=== PATIENT | male | born 1960 | race Caucasian/White ===

== ENCOUNTER 2017-06-03 16:07 | Emergency (ER) | payer OTHER, BC ==
[2017-06-03] MEDS ORDERED: Diphtheria,Pertussis(Acell),Tetanus Vaccine 0.5 ML Syringe IM ONE (16:46)
[2017-06-03] MEDS ORDERED: Sodium Chloride 0.9% 1,000 ML IV ONE (16:46)
[2017-06-03] MEDS ORDERED: Ondansetron 4 MG/2 ML SDV IVPUSH ONE (16:46)
[2017-06-03] MEDS ORDERED: Morphine 4 MG/ML Syringe IVPUSH ONE ×2 (16:46→18:07)
--- NOTE | 2017-06-03 16:46 | EDM.PDOC ---
ED HPI GENERAL MEDICAL PROBLEM - General Chief Complaint: Upper Extremity Injury/Pain Stated Complaint: PT HURT LT ARM AT WORK Time Seen by Provider: 06/03/17 16:43 Source of Information: Reports: Patient History Limitations: Reports: No Limitations - History of Present Illness INITIAL COMMENTS - FREE TEXT/NARRATIVE: HISTORY AND PHYSICAL: History of present illness: Patient is a 57-year-old male who presents to the emergency room today with complaints of left arm pain after a equipment related injury. He states that a piece of equipment had fallen landing on his left arm reportedly 500 pounds. He denies hitting his head or any loss of consciousness. Upon arrival he does have his left arm guarded in towards his body and states he has pain from the shoulder down to his wrist. He has strong radial pulse with good capillary refill, does not appear to have vascular involvement. Soft tissue swelling noted to the mid forearm. Tetanus has been updated within the last 5 years. Review of systems: As per history of present illness and below otherwise all systems reviewed and negative. Past medical history: As per history of present illness and as reviewed below otherwise noncontributory. Surgical history: As per history of present illness and as reviewed below otherwise noncontributory. Social history: No reported history of drug or alcohol abuse. Family history: As per history of present illness and as reviewed below otherwise noncontributory. Physical exam: General: Well-developed and well-nourished 57 year old male. Alert and oriented. Nontoxic appearing in mild injury related distress. HEENT: Atraumatic, normocephalic, pupils equal and reactive bilaterally, negative for conjunctival pallor or scleral icterus, mucous membranes moist, throat clear, neck supple, nontender, trachea midline. No drooling or trismus noted. No meningeal signs Lungs: Clear to auscultation, breath sounds equal bilaterally, chest nontender. Heart: S1S2, regular rate and rhythm without overt murmur Abdomen: Soft, nondistended, nontender. Negative for masses or hepatosplenomegaly. Negative for costovertebral tenderness. Pelvis: Stable nontender. Genitourinary: Deferred. Rectal: Deferred. C-spine/Back: No pinpoint vertebral tenderness. No crepitus, step offs, or obvious deformities. Ambulatory without difficulty or deficits. Skin: Small abrasion noted mid left forearm with soft tissue swelling. Otherwise skin is intact, warm, and dry. No lesions or rashes noted. Extremities: Keeps the left arm guarded in towards in center. States he has pain from this deltoid down to wrist. No tenderness with palpation of the clavicle or scapula. Generalized tenderness to the deltoid, bicep, tricep and humerus. Mild tenderness with palpation of the left elbow, good passive ROM. Unwilling to fully extend/flexion of the elbow due to pain. Soft tissue swelling to mid-foramen with tenderness over this area. Good flexion/extension of wrist, nontender with palpation. Strong radial pulse. Capillary refill less than 3 seconds. No vascular compromise noted. Neuro: Awake, alert, oriented. Cranial nerves II through XII unremarkable. Cerebellum unremarkable. Motor and sensory unremarkable throughout. Exam nonfocal. Notes: X-ray of the left shoulder and forearm show no dislocations or fractures. Soft tissue swelling is noted to the proximal forearm. Am going to place the patient in a posterior splint with a sling. Educated patient on signs and symptoms that would prompt him to return to the emergency room which included but not limited to: increased swelling, numbness or tingling to affected hand, uncontrolled pain or any new symptoms. I do want him to follow up closely with orthopedics as the nature of this injury was significant and he has moderate amount of swelling. Want to be re-evaluated for any hidden/occult fractures that were not visible on todays xray. Patient is aware of this and understands the importance of following up next week. [place] (#30) and Zofran prescribed. Diagnostics: Xray left shoulder, left forearm Therapeutics: IV fluids, morphine, zofran 1/2 cast splint with sling Impression: Crush Injury, left arm Contusion, left arm Plan: 1. Rest, ice, elevate. Please keep the splint on and use sling as directed, until you follow-up with Orthopedics next week. 2. [place] has been prescribed for pain managment. This medication is a narcotic and can cause drowsiness, so do not take while driving or needing to be functioning outside of the house. 3. No work until cleared by orthopedics or your primary care provider. 4. Follow up with Orthopedics next week for re-evaluation. As we discussed; if you notice increased swelling, numbness or tingling to your hand, uncontrolled pain, or any new symptoms develop - please return to the Emergency Room. Definitive disposition and diagnosis as appropriate pending reevaluation and review of above. Onset: Today Duration: Minutes: Location: Reports: Upper Extremity, Left Left Arm Pain Score (Numeric/FACES): 10 - Related Data Allergies Allergy/AdvReac Type Severity Reaction Status Date / Time No Known Allergies Allergy Verified 06/03/17 16:41 Home Meds: Home Meds . [No Known Home Meds] 04/08/15 [History] Past Medical History - Past Surgical History GI Surgical History: Reports: Appendectomy, Other (See Below) Social & Family History - Tobacco Use Smoking Status *Q: Never Smoker - Recreational Drug Use Recreational Drug Use: No Review of Systems - Review of Systems Review Of Systems: ROS reveals no pertinent complaints other than HPI. ED EXAM, GENERAL - Physical Exam Exam: See Below (See dictation) Course - Vital Signs Last Recorded V/S: Last Vital Signs Temp 97.9 F 06/03/17 16:36 Pulse 71 06/03/17 16:36 Resp 22 H 06/03/17 16:36 BP 130/81 06/03/17 16:36 Pulse Ox 98 06/03/17 16:36 - Orders/Labs/Meds Orders: Active Orders 24 hr Category Date Time Status Vaccines to be Administered [RC] PER UNIT ROUTINE Care 06/03/17 16:46 Active Forearm 2V Lt [CR] Stat Exams 06/03/17 17:27 Taken Shoulder Comp Lt [CR] Stat Exams 06/03/17 16:38 Taken DME for Discharge [COMM] Stat Oth 06/03/17 18:08 Ordered Meds: Medications Discontinued Medications Generic Name Dose Route Start Last Admin Trade Name Adityaq PRN Reason Stop Dose Admin Diphtheria/Tetanus/Acell Pertussis 0.5 ml 06/03/17 16:46 06/03/17 17:10 Adacel IM 06/03/17 16:47 0.5 ml .ONCE ONE Administration Sodium Chloride 1,000 mls @ 999 mls/hr 06/03/17 16:46 06/03/17 17:07 Normal Saline IV 06/03/17 17:46 999 mls/hr STAT ONE Administration Morphine Sulfate 4 mg 06/03/17 16:46 06/03/17 17:06 Morphine IVPUSH 06/03/17 16:47 4 mg ONETIME ONE Administration Morphine Sulfate 2 mg 06/03/17 18:07 06/03/17 18:17 Morphine IVPUSH 06/03/17 18:08 2 mg ONETIME ONE Administration Ondansetron HCl 4 mg 06/03/17 16:46 06/03/17 17:07 Zofran IVPUSH 06/03/17 16:47 4 mg ONETIME ONE Administration Departure - Departure Time of Disposition: 18:31 Disposition: Home, Self-Care 01 Clinical Impression: Crush injury arm Qualifiers: Encounter type: initial encounter Laterality: left Qualified Code(s): S47.2XXA - Crushing injury of left shoulder and upper arm, initial encounter Contusion Qualifiers: Encounter type: initial encounter Contusion area: forearm Laterality: left Qualified Code(s): S50.12XA - Contusion of left forearm, initial encounter - Discharge Information Instructions: Contusion, [id number] Referrals: PCP,None [Primary Care Provider] - Forms: ED Department Discharge Additional Instructions: The following information is given to patients seen in the emergency department who are being discharged to home. This information is to outline your options for follow-up care. We provide all patients seen in our emergency department with a follow-up referral. The need for follow-up, as well as the timing and circumstances, are variable depending upon the specifics of your emergency department visit. If you don't have a primary care physician on staff, we will provide you with a referral. We always advise you to contact your personal physician following an emergency department visit to inform them of the circumstance of the visit and for follow-up with them and/or the need for any referrals to a consulting specialist. The emergency department will also refer you to a specialist when appropriate. This referral assures that you have the opportunity for follow-up care with a specialist. All of these measure are taken in an effort to provide you with optimal care, which includes your follow-up. Under all circumstances we always encourage you to contact your private physician who remains a resource for coordinating your care. When calling for follow-up care, please make the office aware that this follow-up is from your recent emergency room visit. If for any reason you are refused follow-up, please contact the [facility] Emergency Department at and asked to speak to the emergency department charge nurse. VALERIANO [facility] [address] [place] [address] [facility] - [facility] Professional Building [address], [address] [place] [address] 1. Rest, ice, and elevate the affected extremity. Please keep the splint on and use sling as directed, until you follow-up with Orthopedics next week. 2. [place] Mead has been prescribed for pain managment. This medication is a narcotic and can cause drowsiness, so do not take while driving or needing to be functioning outside of the house. 3. No work until cleared by orthopedics or your primary care provider. 4. Follow up with Orthopedics next week for re-evaluation. As we discussed; if you notice increased swelling, numbness or tingling to your hand, uncontrolled pain, or any new symptoms develop - please return to the Emergency Room. - My Orders Last 24 Hours: My Active Orders 06/03/17 16:38 Shoulder Comp Lt [CR] Stat 06/03/17 16:46 Vaccines to be Administered [RC] PER UNIT ROUTINE 06/03/17 17:27 Forearm 2V Lt [CR] Stat 06/03/17 18:08 DME for Discharge [COMM] Stat - Assessment/Plan Last 24 Hours: My Active Orders 06/03/17 16:38 Shoulder Comp Lt [CR] Stat 06/03/17 16:46 Vaccines to be Administered [RC] PER UNIT ROUTINE 06/03/17 17:27 Forearm 2V Lt [CR] Stat 06/03/17 18:08 DME for Discharge [COMM] Stat
[2017-06-03 19:32] VITALS: BP 123/78
--- NOTE | 2017-06-04 18:09 | CR ---
EXAM DATE: 06/03/17 PATIENT'S AGE: 57 Patient: ALEJO KARIMI Facility: [place], [place] Site . Site : 1960 Study: XRay Extremity Left [id number]/29/2018 5:47:16 PM Ordering Physician: Doctor Clay Final Report: Indication: Crush injury Technique: Two views left forearm Comparison: None Findings: Bones: Alignment is normal. No fractures or bone lesions. Joint spaces: Unremarkable. Soft tissues: Soft tissue swelling involving the proximal to mid forearm. No radiopaque foreign body. Impression: Soft tissue swelling of the proximal to mid forearm. No fracture, subluxation, or radiopaque foreign body. Dictated by Maday Sesay MD @ Jun 03 2017 5:55PM (Electronic Signature) Report Signed by Proxy. ZOEY
--- NOTE | 2017-06-04 18:14 | CR ---
EXAM DATE: 06/03/17 PATIENT'S AGE: 57 Patient: ALEJO KARIMI Facility: [place], [place] Site . Site : 1960 Study: XRay Shoulder Left [id number]/29/2018 6:02:49 PM Ordering Physician: Doctor Clay Final Report: HISTORY: Pain, crush injury. FINDINGS/IMPRESSION: Two views of the left shoulder demonstrates maintenance of the AC joint and glenohumeral joint. No fracture or dislocation is appreciated. No left-sided displaced rib fracture is seen. Left clavicle is intact. Dictated by Naz Michel MD @ 06/03/2017 6:05:40 PM Dictated by: Naz Michel MD @ 06/03/2017 18:05:49 (Electronic Signature) Report Signed by Proxy. [email or web address]
== END 2017-06-03 19:10 | disposition home or self-care (01) ==
LOC: MW.ED 16:07
DX: S57.82XA Crushing injury of left forearm, initial encounter (principal); S50.12XA Contusion of left forearm, initial encounter; Z23 Encounter for immunization; W23.1XXA Caught, crushed, jammed, or pinched between stationary objects, initial encounter
CPT/HCPCS: 73030; 73090; 90471; 90715; 96361; 96374; 96375; 96376; 99283; A4566; J2270; J2405; J7040

== ENCOUNTER 2018-10-05 07:52 | Day surgery (SDC) | payer OTHER, BC ==
[~2018-10-05 07:52] MED LIST: Lactated Ringers 1,000 ML IV SCH; Lidocaine 1% 20 ML MDV ONE
[2018-10-05] MEDS ORDERED: ceFAZolin 2 GM in Premix Bag 1 BAG IV SCH (08:00)
[2018-10-05] MEDS ORDERED: Acetaminophen/HYDROcodone 325-5 MG Tab PO PRN (08:00)
[2018-10-05] MEDS ORDERED: Ondansetron 4 MG/2 ML SDV ONE (08:59)
[2018-10-05] MEDS ORDERED: Lidocaine 2% 5 ML SDV ONE (08:59)
[2018-10-05] MEDS ORDERED: Propofol 200 MG/20 ML SDV ONE (09:00)
[2018-10-05] MEDS ORDERED: Midazolam 1 MG/ML 2 ML SDV ONE (09:00)
[2018-10-05] MEDS ORDERED: fentaNYL 250 MCG/5 ML SDV ONE (09:00)
[2018-10-05] MEDS ORDERED: EPINEPHrine 1:10,000 1 MG/10 ML Syringe IVPUSH PRN (09:06)
[2018-10-05] MEDS ORDERED: Albuterol 0.083% 2.5 MG/3 ML Neb Soln NEB PRN (09:06)
[2018-10-05] MEDS ORDERED: Atropine 0.1 MG/ML 10 ML Syringe IVPUSH PRN ×2 (09:06)
[2018-10-05] MEDS ORDERED: Naloxone 0.4 MG/ML Syringe IVPUSH PRN (09:06)
[2018-10-05] MEDS ORDERED: fentaNYL 100 MCG/2 ML SDV IVPUSH PRN (09:06)
[2018-10-05] MEDS ORDERED: 50% Dextrose in Water 50 ML Syringe IVPUSH PRN (09:06)
[2018-10-05] MEDS ORDERED: ePHEDrine 50 MG/ML SDV ONE (09:57)
--- NOTE | 2018-10-05 10:01 | PCM.PREANE ---
Preanesthetic Assessment - Anesthesia/Transfusion/Family Hx Anesthesia History: Prior Anesthesia Without Reaction Family History of Anesthesia Reaction: No Transfusion History: No Prior Transfusion(s) Intubation History: Unknown - Review of Systems General: No Symptoms Pulmonary: No Symptoms Cardiovascular: No Symptoms Gastrointestinal: No Symptoms Neurological: No Symptoms Other: Reports: None - Physical Assessment NPO Status Date: 10/05/18 NPO Status Time: 06:00 O2 Sat by Pulse Oximetry: 98 Respiratory Rate: 16 Vital Signs: Last Vital Signs Temp 36.7 C 10/05/18 08:00 Pulse 61 10/05/18 08:00 Resp 16 10/05/18 08:00 BP 116/76 10/05/18 08:00 Pulse Ox 98 10/05/18 08:00 Height: 5 ft 8.5 in Weight: 86.183 kg ASA Class: 1 Mental Status: Alert & Oriented x3 Airway Class: Mallampati = 1 Dentition: Reports: Normal Dentition Thyro-Mental Finger Breadths: 3 Mouth Opening Finger Breadths: 3 ROM/Head Extension: Full Lungs: Clear to Auscultation, Normal Respiratory Effort Cardiovascular: Regular Rate, Regular Rhythm - Allergies Allergies/Adverse Reactions: Allergies Allergy/AdvReac Type Severity Reaction Status Date / Time No Known Allergies Allergy Verified 09/30/18 07:55 - Blood Blood Available: No - Anesthesia Plan Pre-Op Medication Ordered: None - Acknowledgements Anesthesia Type Planned: General Anesthesia Pt an Appropriate Candidate for the Planned Anesthesia: Yes Alternatives and Risks of Anesthesia Discussed w Pt/Guardian: Yes Pt/Guardian Understands and Agrees with Anesthesia Plan: Yes PreAnesthesia Questionnaire - Past Health History Medical/Surgical History: Denies Medical/Surgical History Musculoskeletal History: Reports: Fracture Other Musculoskeletal History: hx fx hand - Past Surgical History Head Surgeries/Procedures: Reports: None GI Surgical History: Reports: Appendectomy - SUBSTANCE USE Smoking Status *Q: Never Smoker Recreational Drug Use History: No - HOME MEDS Home Medications: Home Meds . [No Known Home Meds] 04/08/15 [History] - CURRENT (IN HOUSE) MEDS Current Meds: Current Medications Hydrocodone Bitart/Acetaminophen ([place] 325-5 Mg) 1 - 2 tab PO Q4H PRN PRN Reason: Pain Albuterol (Proventil Neb Soln) 2.5 mg NEB ONETIME PRN PRN Reason: Wheezing Atropine Sulfate (Atropine 0.1 Mg/Ml) 0.5 mg IVPUSH ASDIRECTED PRN PRN Reason: Hypo-perfusion Atropine Sulfate (Atropine 0.1 Mg/Ml) 1 mg IVPUSH ASDIRECTED PRN PRN Reason: Hypo-Perfusion Dextrose/Water (Dextrose 50% In Water) 50 ml IVPUSH ASDIRECTED PRN PRN Reason: Hypoglycemia Epinephrine HCl (Epinephrine 1:10,000) 1 mg IVPUSH ASDIRECTED PRN PRN Reason: ACLS Guidelines Fentanyl (Sublimaze) 50 - 100 mcg IVPUSH Q5M PRN PRN Reason: Pain Cefazolin Sodium/Dextrose 2 gm (/ Premix) 50 mls @ 100 mls/hr IV ONCALL LUC Lactated Ringer's (Ringers, Lactated) 1,000 mls @ 100 mls/hr IV ASDIRECTED LUC Last Admin: 10/05/18 08:25 Dose: 100 mls/hr Naloxone HCl (Narcan) 0.1 mg IVPUSH ASDIRECTED PRN PRN Reason: Respiratory Depression Discontinued Medications Fentanyl (Sublimaze) Confirm Administered Dose 250 mcg .ROUTE .STK-MED ONE Stop: 10/05/18 09:01 Lidocaine (Xylocaine-Mpf 2%) Confirm Administered Dose 5 ml .ROUTE .STK-MED ONE Stop: 10/05/18 09:00 Lidocaine HCl (Xylocaine 1%) Confirm Administered Dose 20 ml .ROUTE .STK-MED ONE Stop: 10/05/18 07:39 Midazolam HCl (Versed 1 Mg/Ml) Confirm Administered Dose 2 mg .ROUTE .STK-MED ONE Stop: 10/05/18 09:01 Ondansetron HCl (Zofran) Confirm Administered Dose 4 mg .ROUTE .STK-MED ONE Stop: 10/05/18 09:00 Propofol (Diprivan 20 Ml) Confirm Administered Dose 200 mg .ROUTE .STK-MED ONE Stop: 10/05/18 09:01
--- NOTE | 2018-10-05 10:24 | PCM.OPNOTE ---
- General Post-Op/Procedure Note Date of Surgery/Procedure: 10/05/18 Operative Procedure(s): left knee scope with chondroplasty of MFC Post-Op Diagnosis: DJD left knee Anesthesia Technique: General LMA Primary Surgeon: Flory Alexis Analytical Research Chemist: Maryan Sullivan in mLs: 5 Condition: Good Free Text/Narrative:: #[id number]
[2018-10-05 12:16] VITALS: BP 107/62; PULSE 58
--- NOTE | 2018-10-05 13:07 | OR ---
SURGEON: Flory Alexis MD DATE OF PROCEDURE: 10/05/2018 PREOPERATIVE DIAGNOSIS: Left knee pain. POSTOPERATIVE DIAGNOSIS: Degenerative joint disease, left knee. PROCEDURE: Left knee arthroscopy with chondroplasty of the medial femoral condyle. PRIMARY SURGEON: Flory Alexis MD. PRESS AND BLOW MACHINE TENDER: Maryan Sullivan PA-C. ANESTHESIA: General. ESTIMATED BLOOD LOSS: 5 mL. TOURNIQUET TIME: See nursing record. COMPLICATIONS: None. DVT PROPHYLAXIS: Not indicated. IMPLANTS USED: None. BRIEF HISTORY: Stephan is a 58-year-old male who was seen with complaint of continued left knee pain. He had failed conservative treatment. Due to his lack of response to conservative treatment, I did recommend surgical intervention. The risks and goals of the procedure were discussed with the patient and were documented preoperatively. He agreed to proceed. DESCRIPTION OF PROCEDURE: The patient was properly identified and brought to the operating room. He was transferred from the OR cart and placed on the operating table in supine position. General anesthesia was administered. After adequate anesthesia was obtained, a well-padded tourniquet was applied to the left lower extremity. The left lower extremity was then prepped in standard fashion using ChloraPrep solution. It was then sterilely draped. A time-out was performed to ensure correct site and procedure. Preoperative antibiotics were given. The surgical site had been marked preoperatively. An Esmarch was used to exsanguinate the left lower extremity and tourniquet was inflated to 250 mmHg. A lateral portal arthrotomy was established. Blunt trocar and cannula were introduced into the suprapatellar pouch. Camera, inflow, and outflow were assembled. No significant synovitis was noted. The patellofemoral joint was then visualized. He did have evidence of grade 2 to grade 3 chondromalacia along the lateral facet of the patella. Trochlear groove showed degenerative changes consisting of grade 2. The patella appeared to track centrally. I then extended down the lateral and medial gutter. No loose bodies were identified. I then entered the medial compartment. A medial portal arthrotomy was established. A blunt probe was inserted. The meniscus was extensively probed. No tearing was noted. Degenerative changes were noted along the entire weightbearing surface of the medial femoral condyle. There was a large flap of cartilage present as well. Chondroplasty was performed. The degenerative changes were consistent with grade 3 chondromalacia. Grade 2 to grade 3 chondromalacia was also noted along the medial tibial plateau. I then entered the notch. Both the ACL and PCL were visualized and probed and found to be intact. I then entered the lateral compartment. Minor degenerative fraying was noted along the central portion of the meniscus. The meniscus was probed and found to be stable. Grade 1 to grade 2 chondromalacia was noted diffusely throughout the lateral compartment. The instruments were then removed from the knee. The portal sites were closed with 3-0 nylon. 1% Lidocaine was injected along the portal tracts. Xeroform gauze was placed over the wound and a bulky dressing was applied. The tourniquet was then deflated. He was awakened from his anesthetic and transferred back to the operating room cart. He was brought to recovery room in stable condition. All needle and sponge counts were correct. ISABELLA / IRAM /[id number]
== END 2018-10-05 13:17 | disposition home or self-care (01) ==
LOC: MW.SDS 07:52
PROVIDERS: ATTEND Orthopaedic Surgery
DX: M17.12 Unilateral primary osteoarthritis, left knee (principal); M22.42 Chondromalacia patellae, left knee
CPT/HCPCS: 29877; A9270; J2001; J2250; J2405; J2704; J3010; J7120; 01400; 88304